=== PATIENT | female | born 1935 | race African-American/Black ===

== ENCOUNTER 2019-06-02 09:29 | Inpatient (IN) | payer OTHER ==
[~2019-06-02] VITALS: Ht 157.5 cm; Wt 47.2 kg
[2019-06-02] MEDS ORDERED: SODIUM CHLORIDE 0.9% 1,000 ML IV ONE (10:09)
[2019-06-02] MEDS ORDERED: AZITHROMYCIN 500 MG in DEXT 5% WATER 250 ML IV ONE (11:15)
[2019-06-02] MEDS ORDERED: CEFTRIAXONE 1 G PREMIX 50 ML IV ONE (11:15)
[2019-06-02 11:26] LABS: HEMATOCRIT. 25.8 % (36.0-48.0); HEMOGLOBIN. 7.5 g/dL (12.0-16.0); MEAN CORPUSCULAR HEMOGLOBIN 21.3 pg (28.0-32.0); MEAN CORPUSCULAR VOLUME 72.8 fL (81.0-99.0); MEAN PLATELET VOLUME 7.9 fl (7.4-10.4); PLATELET 229 x1000/uL (130-400); RED BLOOD CELL COUNT 3.54 mill/uL (4.2-5.4); RED CELL DISTRIBUTION WIDTH 16.9 % (11.6-14.6)
[2019-06-02 11:31] LABS: INR 1.1; PROTHROMBIN TIME 10.9 sec (9.6-11.0)
[2019-06-02 11:32] LABS: CHLORIDE 103 mEq/L (98-107)
[2019-06-02] MEDS ORDERED: INSULIN REGULAR (HUMULIN R) 300UNITS/3ML SUBCUT ONE (12:15)
[2019-06-02 12:50] LABS: CLARITY URINE CLEAR (CLEAR); COLOR URINE YELLOW (YELLOW); KETONES URINE 1+ (NEGATIVE); LEUKOCYTE ESTERASE URINE NEGATIVE (NEGATIVE); NITRITE URINE NEGATIVE (NEGATIVE); OCCULT BLOOD URINE TRACE (NEGATIVE); PROTEIN URINE TRACE (NEGATIVE); SPECIFIC GRAVITY URINE 1.016 (1.005-1.030); UROBILINOGEN URINE 0.2 E.U./dL (0.2-1.0)
[2019-06-02 13:04] LABS: PLATELET ESTIMATE NORMAL
[2019-06-02] MEDS ORDERED: ACETAMINOPHEN 325MG TABLET PO PRN (14:45)
[2019-06-02] MEDS ORDERED: LORAZEPAM 2MG/ML CPJ IV PRN (14:45)
[2019-06-02] MEDS ORDERED: MORPHINE SULFATE 2 MG/ML CPJ (NOT FOR IM USE) IV PRN (14:45)
[2019-06-02] MEDS ORDERED: DOCUSATE SODIUM 100MG CAPSULE PO PRN (14:45)
[2019-06-02] MEDS ORDERED: CLONIDINE 0.1MG TABLET PO PRN (14:45)
[2019-06-02] MEDS ORDERED: ONDANSETRON HCL 4MG/2ML INJ IV PRN (14:45)
[2019-06-02] MEDS ORDERED: HYDROCODONE/ACETAMINOPHEN 5/325MG TABLET PO PRN (14:45)
[2019-06-02 16:10] VITALS: BP 123/60
[2019-06-02 16:20] VITALS: BP 123/60
[2019-06-02] MEDS ORDERED: METF-414 MT (17:40)
[2019-06-02] MEDS ORDERED: MYCO500T PO (17:40)
[2019-06-02] MEDS ORDERED: LOSA50TA41 MT (17:41)
[2019-06-02] MEDS ORDERED: LOVA40TA73 MT (17:41)
[2019-06-02] MEDS ORDERED: HYDR25TA MT (17:42)
[2019-06-02] MEDS ORDERED: AMLO5TAB88 MT (17:43)
[2019-06-02] MEDS ORDERED: GLIP5TAB12 MT (17:44)
[2019-06-02] MEDS ORDERED: FAMO20TA8 MT (17:44)
[2019-06-02] MEDS ORDERED: OMEP20TA2 PO (17:45)
[2019-06-02] MEDS ORDERED: ALEN70TA68 PO (17:47)
[2019-06-02] MEDS ORDERED: DEXTROSE 50% WATER 50ML SYRINGE IV PRN ×2 (18:00)
[2019-06-02] MEDS: SODIUM CHLORIDE 0.9% 1,000 ML IV SCH (18:05)
[2019-06-02] MEDS: INSULIN LISPRO 100 UNITS/ML SUBCUT SCH ×2 (18:21→21:20)
[2019-06-02 20:00] VITALS: BP 124/67
[2019-06-02] MEDS ORDERED: INSULIN LISPRO 100 UNITS/ML SUBCUT SCH (21:00)
[2019-06-02] MEDS: BLOOD SUGAR DIAGNOSTIC STRIP TEST SCH (21:19)
[2019-06-02] MEDS: DILTIAZEM HCL 30MG TABLET PO SCH (21:19)
[2019-06-03] VITALS (13 sets, daily range): BP systolic 99–139; BP diastolic 42–69
[2019-06-03] MEDS: DILTIAZEM HCL 30MG TABLET PO SCH ×4 (00:19→17:43)
[2019-06-03] MEDS: SODIUM CHLORIDE 0.9% 1,000 ML IV SCH ×2 (06:03→21:31)
[2019-06-03] MEDS: BLOOD SUGAR DIAGNOSTIC STRIP TEST SCH ×4 (06:21→21:31)
[2019-06-03 07:56] LABS: BASOPHILS % 0.4 % (0.0-2.0); EOSINOPHILS % 0.9 % (0.0-5.0); HEMATOCRIT. 24.5 % (36.0-48.0); HEMOGLOBIN. 7.3 g/dL (12.0-16.0); LYMPHOCYTES % 7.2 % (20.0-50.0); MEAN CORPUSCULAR HEMOGLOBIN 21.2 pg (28.0-32.0); MEAN CORPUSCULAR VOLUME 71.3 fL (81.0-99.0); MEAN PLATELET VOLUME 8.1 fl (7.4-10.4); MONOCYTES % 13.2 % (2.0-8.0); NEUTROPHILS % 78.3 % (40.0-76.0); PLATELET 206 x1000/uL (130-400); RED BLOOD CELL COUNT 3.43 mill/uL (4.2-5.4); RED CELL DISTRIBUTION WIDTH 16.1 % (11.6-14.6)
[2019-06-03 08:07] LABS: CHLORIDE 103 mEq/L (98-107)
[2019-06-03] MEDS ORDERED: AMLODIPINE 10MG TABLET PO SCH (09:00)
[2019-06-03] MEDS ORDERED: POTASSIUM CHLORIDE 20MEQ TABLET SR PO SCH (09:15)
[2019-06-03] MEDS: INSULIN LISPRO 100 UNITS/ML SUBCUT SCH ×4 (09:59→21:45)
[2019-06-03] MEDS: ASPIRIN 81MG EC TABLET PO SCH (10:00)
[2019-06-03] MEDS: MYCOPHENOLATE MOFETIL 500MG TABLET PO SCH (14:43)
[2019-06-03] MEDS: FAMOTIDINE 20MG TABLET PO SCH (14:43)
[2019-06-03] MEDS ORDERED: FAMOTIDINE(NEO) 1MG/ML SUSP PO SCH (17:00)
[2019-06-04] VITALS: BP 115/62
[2019-06-04] MEDS: DILTIAZEM HCL 30MG TABLET PO SCH ×5 (01:07→18:10)
[2019-06-04 04:00] VITALS: BP 125/57
[2019-06-04] MEDS: BLOOD SUGAR DIAGNOSTIC STRIP TEST SCH ×4 (07:06→21:33)
[2019-06-04 08:00] VITALS: BP 116/59
[2019-06-04] MEDS ORDERED: FUROSEMIDE 40MG/4ML VIAL IVP SCH (10:00)
[2019-06-04] MEDS: FAMOTIDINE 20MG TABLET PO SCH (10:22)
[2019-06-04] MEDS: MYCOPHENOLATE MOFETIL 500MG TABLET PO SCH (10:22)
[2019-06-04] MEDS: HYDROCHLOROTHIAZIDE 25MG TABLET PO SCH (10:22)
[2019-06-04] MEDS: ASPIRIN 81MG EC TABLET PO SCH (10:22)
[2019-06-04] MEDS: AMLODIPINE 5MG TABLET PO SCH (10:23)
[2019-06-04] MEDS: LOSARTAN POTASSIUM 50 MG TABLET PO SCH (10:23)
[2019-06-04] MEDS: INSULIN LISPRO 100 UNITS/ML SUBCUT SCH ×4 (10:24→21:33)
[2019-06-04 12:00] VITALS: BP 120/57
[2019-06-04 16:00] VITALS: BP 123/62
[2019-06-04 16:13] LABS: BASOPHILS % 0.5 % (0.0-2.0); EOSINOPHILS % 1.1 % (0.0-5.0); HEMATOCRIT. 27.3 % (36.0-48.0); HEMOGLOBIN. 8.3 g/dL (12.0-16.0); MEAN CORPUSCULAR HEMOGLOBIN 22.5 pg (28.0-32.0); MEAN CORPUSCULAR VOLUME 73.8 fL (81.0-99.0); MEAN PLATELET VOLUME 7.9 fl (7.4-10.4); MONOCYTES % 12.6 % (2.0-8.0); NEUTROPHILS % 77.8 % (40.0-76.0); PLATELET 183 x1000/uL (130-400); RED CELL DISTRIBUTION WIDTH 17.8 % (11.6-14.6)
[2019-06-04 20:00] VITALS: BP 105/51
[2019-06-05] VITALS: BP 120/59
[2019-06-05] MEDS: DILTIAZEM HCL 30MG TABLET PO SCH ×2 (00:39→05:47)
[2019-06-05 04:00] VITALS: BP 126/68
[2019-06-05 05:47] VITALS: BP 122/63
[2019-06-05] MEDS: BLOOD SUGAR DIAGNOSTIC STRIP TEST SCH (06:31)
[2019-06-05 08:00] VITALS: BP 114/57
[2019-06-05] MEDS: INSULIN LISPRO 100 UNITS/ML SUBCUT SCH (08:21)
[2019-06-05] MEDS: LOSARTAN POTASSIUM 50 MG TABLET PO SCH (08:27)
[2019-06-05] MEDS: ASPIRIN 81MG EC TABLET PO SCH (08:27)
[2019-06-05] MEDS: FAMOTIDINE 20MG TABLET PO SCH (08:27)
[2019-06-05] MEDS: MYCOPHENOLATE MOFETIL 500MG TABLET PO SCH (08:27)
[2019-06-05] MEDS: AMLODIPINE 5MG TABLET PO SCH (08:27)
[2019-06-05] MEDS: HYDROCHLOROTHIAZIDE 25MG TABLET PO SCH (08:27)
== END 2019-06-05 11:40 | disposition short-term general hospital (02) | DRG 682 ==
LOC: ER 09:50 → 6WST 13:11 → EDBEDREQ 13:13 → EDBEDREQTM 13:13 → ENRESERV 14:55
PROVIDERS: ADMIT Hospitalist; ATTEND Hospitalist
PROC: 30233N1 Transfusion of Nonautologous Red Blood Cells into Peripheral Vein, Percutaneous Approach (ICD-10-PCS; principal; 2019-06-03)
DX: I13.10 Hypertensive heart and chronic kidney disease without heart failure, with stage 1 through stage 4 chronic kidney disease, or unspecified chronic kidney disease (principal); E43 Unspecified severe protein-calorie malnutrition; N17.9 Acute kidney failure, unspecified; Z68.1 Body mass index [BMI] 19.9 or less, adult; I31.3 Pericardial effusion (noninflammatory); R55 Syncope and collapse; D63.8 Anemia in other chronic diseases classified elsewhere; E11.22 Type 2 diabetes mellitus with diabetic chronic kidney disease; E11.65 Type 2 diabetes mellitus with hyperglycemia; E87.6 Hypokalemia; S09.90XA Unspecified injury of head, initial encounter; M34.9 Systemic sclerosis, unspecified; D32.9 Benign neoplasm of meninges, unspecified; W18.39XA Other fall on same level, initial encounter; Y93.01 Activity, walking, marching and hiking; I27.20 Pulmonary hypertension, unspecified; J84.10 Pulmonary fibrosis, unspecified; M19.90 Unspecified osteoarthritis, unspecified site; N18.9 Chronic kidney disease, unspecified; Z87.891 Personal history of nicotine dependence; Y92.89 Other specified places as the place of occurrence of the external cause; Y99.8 Other external cause status
CPT/HCPCS: 36415; 71045; 80048; 81003; 82962; 83036; 83605; 83880; 84484; 86850; 86900; 86920; 93005; 93306; 93970; 97162; 99285; J0456; J0696; J1815; J1940; J7030; J7060; J7517; P9021